=== PATIENT | female | born 2000 | race Caucasian/White ===

== ENCOUNTER → 2023-01-02 | Outpatient (CLI) | payer BC | END | disposition home or self-care (01) | LOC: LAB SHORT 15:23 → LAB 15:23 | PROVIDERS: Family Medicine | DX: Z12.4 Encounter for screening for malignant neoplasm of cervix (principal) | CPT/HCPCS: G0145 ==

== ENCOUNTER → 2023-04-27 | Outpatient (CLI) | payer BC ==
[2023-04-29 01:06] LABS: CHLAMYDIA TRACHOMATIS, NAA Negative (Negative)
== END | disposition home or self-care (01) ==
LOC: LAB SHORT 12:09 → LAB 12:09
PROVIDERS: Family Medicine
DX: Z34.01 Encounter for supervision of normal first pregnancy, first trimester (principal); Z3A.01 Less than 8 weeks gestation of pregnancy
CPT/HCPCS: 87086; 87491; 87591

== ENCOUNTER 2025-06-12 06:36 | Day surgery (SDC) | payer BC, OTHER ==
[2025-06-12] VITALS (7 sets, daily range): BP systolic 109–121; BP diastolic 54–81
[~2025-06-12] VITALS: Ht 162.6 cm; Wt 58.2 kg
[~2025-06-12 06:36] MED LIST: CeFAZolin Sodium 2,000 MG in NS 100 ML IV SCH; PRENATAL TABLE1 EAC2 PO
[2025-06-12] MEDS ORDERED: Midazolam HCl 1MG / ML 2ML Vial ONE (07:26)
[2025-06-12] MEDS ORDERED: FentaNYL Citrate 50 MCG/ML 2 ML Injection ONE (07:27)
[2025-06-12] MEDS ORDERED: Ondansetron HCl 2 MG / ML 2ML Vial ONE (07:28)
[2025-06-12] MEDS ORDERED: Dexamethasone Sod Phos 10 MG/ML 1ML VIAL ONE (07:28)
[2025-06-12] MEDS ORDERED: Bupivacaine 0.5% W/EPI 1:200000 SDV 30 ML Vial ONE (07:47)
[2025-06-12] MEDS ORDERED: FentaNYL Citrate 50 MCG/ML 2 ML Injection IV PRN ×2 (09:15→09:20)
[2025-06-12] MEDS ORDERED: Ondansetron HCl 2 MG / ML 2ML Vial IV PRN (09:15)
[2025-06-12] MEDS ORDERED: HYDROmorphone HCl/Pf 1MG SYR IV PRN (09:15)
[2025-06-12] MEDS ORDERED: Prochlorperazine Edisylate 10 mg Vial IV PRN (09:15)
[2025-06-12] MEDS ORDERED: Ketorolac Tromethamine 15mg Vial IV PRN (09:40)
== END 2025-06-12 23:00 | disposition home or self-care (01) ==
LOC: ORSCMMR 06:36 → ORD 08:00 → ORSCMMR 08:00
PROVIDERS: Surgery
PROC: 0JB70ZX Excision of Back Subcutaneous Tissue and Fascia, Open Approach, Diagnostic (ICD-10-PCS; principal; 2025-06-12 08:00)
DX: D17.1 Benign lipomatous neoplasm of skin and subcutaneous tissue of trunk (principal)
CPT/HCPCS: 88304; J0690; J1100; J2250; J2405; J2704; J3010; J7120